=== PATIENT | male | born 1975 | race Caucasian/White ===

== ENCOUNTER 2021-03-16 16:59 | Emergency (ER) | payer SELFPAY ==
[2021-03-16 17:07] VITALS: BP 134/86; PULSE 84; RESP 18; TEMP 37.2; O2SAT 96
--- NOTE | 2021-03-16 17:59 | ED.GENADUL_ITS ---
Discharge Plan Disposition Patient Disposition: HOME Condition: Good Discharge Details Clinical Impression: Dental abscess Primary Care Provider: Unknown,Unknown ED Provider: Emil Berry Home Meds and New Rx's Prescriptions: New clindamycin HCl 150 mg capsule 450 mg PO QID 7 Days Qty: 84 RF: 0 Continued acetaminophen 500 mg Tablet 1,000 mg PO PRN PRNRF: 0 ibuprofen 200 mg Tablet 600 mg PO PRN PRNRF: 0 Discontinued penicillin V potassium 500 mg Tablet 500 mg PO TID RF: 0 Discharge Instructions Instructions: Dental Abscess (ED) Additional Instructions: Please stop taking the penicillin. Please start taking the clindamycin. 450 mg 4 times a day. This is 3 tablets 4 times a day. Please start taking the the probiotic that we discussed to help prevent diarrhea. Please take Tylenol and Motrin to help with the swelling in your cheek, and make sure you are icing the area to help cut down on swelling. Please follow-up closely with your dentist. If you notice any worsening of your symptoms, or any new symptoms such as worsening swelling that travels down your neck, vomiting, diarrhea, fever, chills, shortness of breath, chest pain, numbness, weakness, or fainting , please return immediately to the emergency department for reevaluation. Please follow up with your primary care provider as soon as possible for reassessment and reevaluation. As always, it was a pleasure participating in your medical care today. Medical Decision Making 45-year-old male with no significant past medical history who presents today for evaluation of right-sided dental abscess. Patient initially developed pain in the right lower dental area, he went to the urgent care and was given penicillin. He is taking this for the last 48 hours, however today he noticed significant increase in swelling in the right lower area around his right posterior molars. He came in for further assessment. He denies fever or chills. He denies difficulty swallowing. No other complaints at this time. Physical exam demonstrates evidence of a periapical dental abscess. The area was anesthetized, an 18-gauge syringe was used to extract fluid. About 3 cc of bloody purulent fluid were removed. Patient tolerated this well. Bedside ultrasound postprocedure demonstrates no evidence of significant retained fluid. Patient will be started on clindamycin. Recommend stopping penicillin. Recommend Tylenol Motrin and ice. Recommend close dental follow-up. Discussed red flags for which to return. I have extensively reviewed the treatment plan and discharge instructions with the patient. I have addressed all patient concerns at this time. The patient was made aware of what symptoms to monitor for that would warrant a return to the emergency department. Discussed the plan with the patient, they demonstrate verbal understanding and agreement with our assessment and plan at this time. The documentation in this chart was dictated using [facility] dictation software. Please excuse any dictation errors. Time out was taken to identify the correct patient, procedure, and site. Risks and benefits were discussed with the patient and consent was obtained. Direct pressure was held over the area prior to the procedure to reduce painful injection. 8cc?s of Bupivacaine 0.25% was instilled into the right posterior mandible with a 27 gauge needle.Complete analgesia was obtained. The patient tolerated the procedure. There were no complications. HPI General Date/Time Provider Initiated Documentation: 03/16/21 17:58 . HPI Narrative: 45-year-old male with no significant past medical history who presents today for evaluation of right-sided dental abscess. Patient initially developed pain in the right lower dental area, he went to the urgent care and was given penicillin. He is taking this for the last 48 hours, however today he noticed s ignificant increase in swelling in the right lower area around his right posterior molars. He came in for further assessment. He denies fever or chills. He denies difficulty swallowing. No other complaints at this time. Related Data Home Medications Medication Instructions Recorded Confirmed acetaminophen 1,000 mg PO PRN PRN 03/16/21 03/16/21 clindamycin HCl 450 mg PO QID 7 Days #84 cap 03/16/21 ibuprofen 600 mg PO PRN PRN 03/16/21 03/16/21 Previous Rx's Medication Instructions Recorded clindamycin HCl 450 mg PO QID 7 Days #84 cap 03/16/21 Allergies Allergy/AdvReac Type Severity Reaction Status Date / Time codeine Allergy Unverified 03/16/21 17:14 General Stated Complaint: DentalOral ELIZABETH: 3 Review of Systems All systems reviewed & are unremarkable except as noted in HPI and below PFSH All Active Problems Dental abscess (Acute) Social History (Reviewed 03/16/21 @ 18:10 by CORINNE Cohen Smoking/Tobacco Use Status: Never Smoking risk assessment performed?: Yes Alcohol Intake: current Alcohol Intake frequency: holidays/special occasions only Drug use: Daily Substance use type: marijuana Do you feel safe at home: Yes Do you feel safe in your relationship?: Yes Exam Narrative Exam Narrative: 1.Const: Well-nourished, Well-developed, appearing stated age 2.Eyes: PERRL, no conjunctival injection, and symmetrical lids. 3.ENT: Patient demonstrates mild dental carry in his right posterior lower molar. Swelling at the periapical space is noted. Mild fluctuance. No swelling in the posterior oropharynx. No evidence of airway compromise. No clinical evidence of Ludewig's angina. 4.CVS: +S1/S2, No murmurs or gallops. Peripheral pulses 2+ and equal in all extremities. Brisk capillary refill in all extremities. 5.RESP: Unlabored respiratory effort. Clear to auscultation bilaterally. No wheezes rales or rhonchi 6.GI: Soft, Nontender/Nondistended, No hepatosplenomegaly. No guarding or rebound. 7.MSK: Normocephalic/Atraumatic, Extremities w/o deformity or ttp No cyanosis or clubbing, Normal movement of all extremities 8.Skin: Warm, Dry. No rashes or lesions. 9.Neuro: vacation guide II-XII grossly intact. Sensation grossly intact, no focal neurologic deficits. 10.Psych: (AAO) x3. Appropriate mood and affect Course Vital Signs Vital signs: Vital Signs Temperature 37.2 C 03/16/21 17:07 Pulse 84 03/16/21 17:07 Respiratory Rate 18 03/16/21 17:07 Blood Pressure 134/86 03/16/21 17:07 Pulse Oximetry 96 03/16/21 17:07 Temperature 37.2 C 03/16/21 17:07 Pulse 84 03/16/21 17:07 Respiratory Rate 18 03/16/21 17:07 Respiratory Effort Non-Labored 03/16/21 17:28 Blood Pressure 134/86 03/16/21 17:07 Blood Pressure Position Sitting 03/16/21 17:07 Pulse Oximetry 96 03/16/21 17:07 Oxygen Delivery Method Room Air 03/16/21 17:07 Oxygen Flow Rate 0 03/16/21 17:07 Pain Level 7 03/16/21 17:07 Procedures Abscess I/D Site: Other (dental right lower) Side (if applicable): Right Local Anesthetic: Bupivicaine 0.25% Amount of anesthesia used (mL): 8 Technique: Needle Aspiration Amount of fluid expressed (mL): 3 Irrigation: No Packing used?: None PAWSS Have you Been Recently Intoxicated or Drunk Within the Last 30 days?: No Have you Ever Experienced Previous Episodes of Alcohol Withdrawal?: No Have you ever Experienced Withdrawal Seizures?: No Have you ever Experienced Delirium Tremens(DT)s?: No Have you ever undergone Alcohol Rehabilitation Treatment (i.e, inpt ot outpatient treatment programs)?: No Have you ever Experienced Blackouts?: No Have you ever Combined Alcohol with other Downers within the last 90 days?: No Have you ever Combined Alcohol with any other Substance of Abuse during the last 90 days?: No Positive Blood Alcohol level on Presentation? [PCS.BAL]: No Evidence of Increased Autonomic Activity (i.e. HR>120, tremor, sweating, agitation, nausea)?: No Result: 0
[2021-03-16] MEDS: Clindamycin 150 MG CAP, 12 CAPS/BTL 450 MG PO (18:10)
== END 2021-03-16 19:09 | disposition home or self-care (01) ==
PROVIDERS: Emergency Provider Student in an Organized Health Care Education/Training Program
DX: K04.7 Periapical abscess without sinus (principal); K12.2 Cellulitis and abscess of mouth
CPT/HCPCS: 10160

== ENCOUNTER 2021-08-12 10:03 | Outpatient (CLI) | payer BC, SELFPAY ==
--- NOTE | 2021-08-12 09:53 | DI.RAD_ITS ---
Exam(s) XR WRIST RT COMPLETE EXAM: XR WRIST RT COMPLETE CLINICAL HISTORY: R thjmb [facility] pain. TECHNIQUE: 2D digital imaging was performed. COMPARISON: No exams were available for comparison FINDINGS: 3 views No evidence of fracture carpal dislocation. Corticated ossicle is noted distal to ulnar styloid with out evidence of acute fracture at this level. There are moderate degenerative changes noted in 1st carpometacarpal joint. This is the articulation between the thumb metacarpal and trapezium. No other degenerative changes evident. IMPRESSION: DATA REPOSITORY: RADIATION DOSE DELIVERED:
== END 2021-08-12 10:04 | disposition home or self-care (01) ==
LOC: DIORS 10:03
PROVIDERS: PCP Nurse Practitioner; Visit Provider Student in an Organized Health Care Education/Training Program
DX: M79.644 Pain in right finger(s) (principal)
CPT/HCPCS: 73110

== ENCOUNTER 2021-11-18 03:56 | Outpatient (CLI) | payer BC, SELFPAY ==
[2021-11-18 08:23] LABS: ALT 24 U/L (16-63); AST 12 U/L (15-37); Albumin 3.7 g/dL (3.4-5.0); Alkaline Phosphatase 68 U/L (46-116); Anion Gap 7.6 mmol/L (3-11); BUN 15 mg/dL (7-18); Bilirubin, Total 0.5 mg/dL (0.2-1.0); CO2 29.4 mmol/L (21.0-32.0); Calcium 8.7 mg/dL (8.5-10.1); Calculated LDL 95 mg/dL (<100); Chloride 107 mmol/L (98-107); Cholesterol 153 mg/dL (<200); Glucose 95 mg/dL (74-106); HDL Cholesterol 46 mg/dL (40-60); Potassium 4.1 mmol/L (3.5-5.1); Sodium 144 mmol/L (136-145); Triglyceride 62 mg/dL (<150)
== END 2021-11-18 03:57 | disposition home or self-care (01) ==
LOC: LBO 03:56
PROVIDERS: PCP Nurse Practitioner; Visit Provider Nurse Practitioner
DX: Z00.00 Encounter for general adult medical examination without abnormal findings (principal); Z13.220 Encounter for screening for lipoid disorders
CPT/HCPCS: 36415; 80053; 80061

== ENCOUNTER 2022-04-22 11:52 | Outpatient (REF) | payer BC, SELFPAY ==
[2022-04-22 12:34] LABS: Abs Immature Grans 0.04 10^3/uL (0.0-0.06); Absolute Basophil Count 0.07 10^3/uL (0.0-0.2); Absolute Eosinophil Count 0.09 10^3/uL (0.0-0.7); Absolute Neutrophil Count 7.88 10^3/uL (1.2-6.7); Basophils % 0.6; Eosinophils % 0.8; HCT 46.8 % (40.0-50.0); HGB 15.7 g/dL (13.5-17.5); Immature Grans % 0.3; Lymphocytes % 23.1; MCH 27.9 pg (27.0-33.0); MCHC 33.5 % (32.0-36.0); MCV 83 fL (80-95); MPV 10.1 fL (8.0-11.0); Monocytes % 7.7; Neutrophils % 67.5; Platelet Count 366 10^3/uL (130-400); RBC 5.62 10^6/uL (4.36-5.78); RDW 13.4 % (11.8-14.1); RDW-SD 41.2 fL; WBC 11.67 10^3/uL (4.4-10.8)
[2022-04-22 12:50] LABS: Iron 106 ug/dL (65-175); Total Iron Binding Capacity 293 ug/dL (250-450); Transferrin Sat 36 % (20-55)
[2022-04-22 13:16] LABS: Ferritin 281 ng/mL (26-388); Folate 12.3 ng/mL (8.6-20.0); Vitamin B12 504 pg/mL (193-986)
== END 2022-04-22 11:53 | disposition home or self-care (01) ==
LOC: LBN 11:52
PROVIDERS: PCP Nurse Practitioner; Visit Provider Surgery
DX: K57.92 Diverticulitis of intestine, part unspecified, without perforation or abscess without bleeding (principal); K92.1 Melena; R10.13 Epigastric pain; Z80.0 Family history of malignant neoplasm of digestive organs; C50.919 Malignant neoplasm of unspecified site of unspecified female breast
CPT/HCPCS: 82607; 82728; 82746; 83540; 83550; 85025

== ENCOUNTER 2022-05-02 08:18 | Day surgery (SDC) | payer BC, SELFPAY ==
--- NOTE | 2022-05-01 19:11 | W.PM.DSUDISC ---
Date of service: 05/02/22 Time of Service: 11:34 Discharge Plan Disposition Patient Disposition: Home Condition: Good Discharge Details Reason For Visit: melena Attending Provider: José Miguel Hester Primary Care Provider: Yael Cunningham Home Meds and New Rx's Prescriptions: Continued cholecalciferol (vitamin D3) 25 mcg (1,000 unit) capsule 25 mcg PO DAILY clobetasol 0.05 % cream 1 applic topical DAILY PRN (Reason: psoriasis arms and legs bilat) Qty: 60 6RF omeprazole 40 mg capsule,delayed release(DR/EC) 40 mg PO DAILY Qty: 28 0RF sucralfate [Carafate] 1 gram tablet 1 g PO QACHS Qty: 120 0RF meclizine 25 mg tablet 25 mg PO TID Discontinued bisacodyl [Dulcolax (bisacodyl)] 5 mg tablet,delayed release (DR/EC) 5 mg PO ONCE Qty: 4 0RF Rx Instructions: take per colonoscopy instructions polyethylene glycol 3350 17 gram/dose powder 238 g PO ONCE Qty: 238 0RF Rx Instructions: take per colonoscopy instructions Discharge Instructions Instructions: Diet for Stomach Ulcers and Gastritis (GEN), Colorectal Polyps (GEN), Diverticulosis Diet (GEN), Diverticulosis (GEN) Additional Instructions: Brett, we were able to complete your upper and lower endoscopies today without any difficulty. Generally, the upper endoscopy was normal. There was a small area at the end of your stomach that looks like it may be a healed ulcer. This could explain your recent episode. I took biopsies of multiple parts of the upper GI tract. We will notify you when those results are available. Your colonoscopy also went very smoothly. I removed 4 polyps. Similar to above, we will follow-up with the results of those when they become available. 1. If tolerated, consume a soft, low fiber diet for 1-2 days. 2[address] Do not drive, drink alcohol, operate machinery, make critical decisions, or do activities that require coordination or balance for 24 hours. 3. Because air was put into your colon during the procedure, expelling air from your rectum (passing gas or farting) is normal. 4. You may not have a bowel movement for 1-3 days because of the colonoscopy prep. This is normal. 5. You may experience a sore throat for 24 to 48 hours. You may use throat lozenges or gargle with warm salt water to relieve the discomfort. 6. Because air was put into your stomach during the procedure, you may experience some belching. 7. Go directly to the emergency room if you notice any of the following: Develop chills (warm to touch), or if you have a thermometer and your temperature is above 101 Difficulty breathing or difficultly swallowing Persistent vomiting Severe abdominal pain, other than gas cramps Severe chest pain Black, tarry stools Any bleeding ? exceeding one tablespoon 8. Call your physician if the site where your intravenous was started becomes red, swollen, painful, and warm to touch. 9. Your physician has reviewed your pre-procedure medications. Please continue to take those medications as previously ordered. You will be given specific information/education regarding any changes to your medications before leaving. Activity:: Activity as Tolerated Diet:: As Tolerated Discharge Orders Discharge Orders: Discharge Order (Routine); Ordered 05/01/22 Ordered By: José Miguel Hester DS: Diagnosis Discharge Diagnosis (1) Black stools: Status: Acute Asessment and Plan: Follow-up on biopsy pathology results
--- NOTE | 2022-05-01 19:14 | W.PM.ENDDOP ---
Date of service: 05/02/22 Time of Service: 11:10 Endoscopy Report DATE OF PROCEDURE: 05/02/22 PRE-OP DIAGNOSIS: Melena POST-OP DIAGNOSIS: other (Pyloric ulcer, diverticulosis, colon polyps) PROCEDURE: EGD and colonoscopy SURGEON: José Miguel Hester ANESTHESIA TYPE: General:No Airway ESTIMATED BLOOD LOSS: 20 PATHOLOGY: other (Colon polyps at 100, 65, 35, and 30 cm) COMPLICATIONS: None DISPOSITION: same day INDICATIONS: Brett is a 46 year old man with a family history of colon cancer who has recently been experiencing melena. PREP: Miralax/Dulcolax PROCEDURE START TIME: 10:31 PROCEDURE END TIME: 11:08 COLONOSCOPY RETRACTION TIME: 12 FINDINGS: Healed pyloric ulcer, diverticulosis, colon polyps at 100, 65, 35 and 30 cm. Diverticulosis PROCEDURE DESCRIPTION: After the initiation of monitored anesthetic care, and with the assistance of a bite block, I advanced a standard gastroscope through the mouth past the hypopharynx and into the esophagus.? Under the direct vision of the scope, I advanced down the esophagus into the stomach.? Once I entered the stomach, I performed a brief inspection, followed by retroflexion towards the gastric cardia.? This appeared normal.? After that, I gently advanced the scope around the incisura angularis and examined the pylorus.? There was a very faint, white discoloration immediately before the pylorus. It had features of a healed prepyloric ulcer. Certainly, there were no stigmata of recent bleeding. It was quite flat. Next, I advanced the scope through the pylorus into the duodenum.? The mucosa was pink and healthy appearing.? There were no abnormalities.? I was able to visualize bile draining into the duodenum through the ampulla Vater. ?Next, I began retracting the endoscope.? Perform random biopsies of the duodenum, antrum, and greater curvature. These were all performed with cold forceps and there was minimal bleeding. I then gently desufflated some of the stomach, and withdrew the endoscope into the distal esophagus. The Z-line and GE junction were normal-appearing. I did perform some biopsies of the GE junction and distal esophagus. ?Finally, I withdrew the scope along the length of the esophagus taking great care to examine the entirety of the mucosa.? I did not appreciate any abnormalities. We then moved to [place] into the left lateral decubitus position. I began by performing an external anorectal exam.? Perineum and skin were normal, as was the anal verge.? There was no evidence of external hemorrhoids.? Next, I performed a digital rectal exam.? I did not appreciate any abnormal findings.? Next, I advanced a colonoscope into the rectal vault.? I performed retroflexion.? This was normal.? Using insufflation, I then advanced the colonoscope beyond the rectal folds and into the sigmoid colon before advancing towards the cecum.? There was sigmoid diverticulosis. The quality of the prep was adequate.? The scope was noted to be in the cecum by identification of the ileocecal valve and appendiceal orifice.? I then began withdrawing the colonoscope using repeated irrigation as necessary for full evaluation of the colonic mucosa. In the ascending colon, around 100 cm from the anal verge I identified a 0.75 cm polyp. ?It appeared sessile in character. ?I was able to remove this with a cold snare polypectomy. ?I examined the site, and there was minimal bleeding. Similarly, I found polyps at 65 cm, 35 cm and 30 cm. All of these were less than 0.25 cm, and all were sessile. For removed with cold forceps. Once this was completed, I continued to withdraw the scope and examine the remainder of the colonic mucosa.?Once the scope was withdrawn to the level of the rectum, great care was taken to examine portions of the rectal folds.? Finally, the scope was withdrawn and the patient was brought to the same-day surgery recovery unit as the anesthetic wore off. ?The findings and instructions were shared with the patient prior to discharge.
[2022-05-02 08:20] VITALS: BP 125/89; PULSE 74; RESP 16; TEMP 36.1; O2SAT 96
[2022-05-02] MEDS: Lactated Ringers 1,000 ML 80 ML IV (09:26)
--- NOTE | 2022-05-02 10:17 | W.ANESPRE ---
General Info Date of Service Date Performed: 05/02/22 Height: 5 ft 11 in Weight: 111.7 kg Body Mass Index (BMI): 34.3 Surgical Procedure: Operation Date: 05/02/22 09:35 Proposed Procedure Side Surgeon p Colonoscopy/Gastroscopy w/Biopsies José Miguel Hester MD Actual Procedure Side Surgeon p Colonoscopy/Gastroscopy w/Biopsies José Miguel Hester MD Meds Allergies and Home Medications Allergies Allergy/AdvReac Type Severity Reaction Status Date / Time ciprofloxacin [From Cipro] AdvReac Head and Verified 05/02/22 09:28 vomiting codeine AdvReac Visual Verified 05/02/22 09:28 Disturbances levofloxacin AdvReac Nausea Verified 05/02/22 09:28 Home Medication Medication Instructions Recorded meclizine 25 mg tablet 25 mg PO TID 05/03/21 cholecalciferol (vitamin D3) 25 25 mcg PO DAILY 11/09/21 mcg (1,000 unit) capsule clobetasol 0.05 % topical cream 1 applic topical DAILY PRN 11/09/21 psoriasis arms and legs bilat #60 grams omeprazole 40 mg capsule,delayed 40 mg PO DAILY #28 caps 03/31/22 release sucralfate 1 gram tablet (Carafate) 1 g PO QACHS #120 tabs 03/31/22 Current Visit Medications: Current Medications Generic Name Dose Route Start Last Admin Trade Name Freq PRN Reason Stop Dose Admin Hyoscyamine Sulfate 0.125 mg 05/01/22 19:16 Hyoscyamine 0.125 Mg Sl/Oral/Chew SL DIRECTED PRN Ringer's Solution 1,000 mls @ 80 mls/hr 05/02/22 06:00 05/02/22 09:26 IV 05/29/22 23:59 80 mls/hr INFUSION KAROLYN Administration IV Miscellaneous Supplies 1 each 05/02/22 06:00 Iv Access IV 05/29/22 23:59 DIRECTED KAROLYN Ondansetron HCl 4 mg 05/01/22 19:16 Ondansetron 4 Mg/2 Ml Vial IVP Q4H PRN PRN Nausea / Vomiting Sodium Chloride 0 ml 05/02/22 06:00 Normal Saline Flush 10 Ml Syr IV 05/29/22 23:59 PRN PRN Sodium Chloride 0 ml 05/02/22 06:00 Normal Saline 10 Ml Vial IJ 05/29/22 23:59 DIRECTED PRN Sterile Water 0 ml 05/02/22 06:00 Water,Injection,Sterile 10 Ml Vial IJ 05/29/22 23:59 DIRECTED PRN PFSH Active Problems Active Problems: Problem Status Onset Code GERD (gastroesophageal reflux disease) K21.9 Diverticulosis K57.90 Family history of colon cancer Z80.0 Black stools K92.1 Benign positional vertigo H81.10 Arthritis of carpometacarpal (CMC) joint of right thumb M18.11 Perforation of tympanic membrane 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 Neck pain M54.2 Surgical History Surgical History H/O hand surgery (~2011) left s/p trauma WC injury History of colonoscopy (~2015) History of ear surgery (~1985) Hx of appendectomy Tobacco Smoking/Tobacco Use Status: Former Tobacco Use Passive smoking exposure: No Second hand exposure: No Alcohol Alcohol Intake: current Alcohol intake frequency: a few times a month Substance Use Substance use: Never Substance use type: does not use Vital Signs and Lab Results Vital Signs Most Recent Vital Signs in EMR: Most Recent Vital Signs Temp Pulse Resp BP Pulse Ox 36.1 C L 74 16 125/89 96 05/02/22 08:20 05/02/22 08:20 05/02/22 08:20 05/02/22 08:20 05/02/22 08:20 Lab Results Blood Type / Crossmatch: No Data to Display Complete Blood Count: White Blood Count 11.67 10^3/uL (4.4-10.8) H 04/22/22 11:45 Red Blood Count 5.62 10^6/uL (4.36-5.78) 04/22/22 11:45 Hemoglobin 15.7 g/dL (13.5-17.5) 04/22/22 11:45 Hematocrit 46.8 % (40.0-50.0) 04/22/22 11:45 Platelet Count 366 10^3/uL (130-400) 04/22/22 11:45 Complete Metabolic Panel: No Data to Display Liver Function Panel: No Data to Display Coagulation Panel: No Data to Display Cardiac Panel: No Data to Display Arterial Blood Gas: No Data to Display Venous Blood Gas: No Data to Display Pancreas Panel: No Data to Display Thyroid Panel: No Data to Display Infectious Disease: No Data to Display Blood Cultures: No Data to Display Toxicology Panel: No Data to Display Anesthesia Assessment and Plan Anesthesia History Personal History: PONV and Delayed Emergence Family History: Family History Unknown Exercise Tolerance Exercise Tolerance: Metabolic Equivalents>4 Pertinent Negatives Pertinent Negatives: No Major Cardiovascular Symptoms or Complaints and No Major Pulmonary Symptoms or Complaints Cardiac & Pulmonary Exam Cardiac Exam: Normal S1/S2 Heart Sounds Pulmonary Exam: Clear Bilateral Breath Sounds Implantable Cardiac Device Does patient have a Pacemaker or an ICD?: No Airway Exam Known Difficult Airway: No Mallampati Class: 3 Mouth Opening: Narrow (< 3cm) Thyromental Distance: Greater than 3 cm Neck Range of Motion: Full ROM Neck Circumference: Normal Teeth Condition: Normal Dentition ASA Classification ASA Score: ASA 2 Emergency Case?: No NPO Status NPO Status: NPO Clears >2 hours, Solids >8 hours Anesthesia Plan Resuscitation Status: Full Code Anesthesia Technique: General Anesthesia Airway Planned: Natural Airway Monitors Used: Standard Monitors
[2022-05-02 10:18] VITALS: BMI 34.3
--- NOTE | 2022-05-02 10:35 | BOWEL_PTH ---
PATIENT: Brett Edmondson LOC: [facility] U#:[id number] AGE/SX: 46/M ROOM: RE05/02/[address]: José Miguel Hester MD : 1975 BED: DIS: 05/02/2022 SPEC #: [id number] RECD: 05/02/22 13:26 STATUS: MARISELA RE #: [id number] MAICO: 05/02/22 10:[address]: José Miguel Hester DEPT: Surgical Specimen RECD BY: Jolene Sanchez ENTERED: 05/02/22 13:28 SP TYPE: Bowel OTHR DR: Yael Cunningham APRN Tissues: 1 - BIOPSY BOWEL 2 - STOMACH BIOPSY 3 - STOMACH BIOPSY 4 - ESOPHAGUS BIOPSY 5 - ESOPHAGUS BIOPSY 6 - BIOPSY BOWEL 7 - BIOPSY BOWEL 8 - BIOPSY BOWEL 9 - BIOPSY BOWEL Procedures: GROSS AND MICRO LEVEL 4 Comments: [id number]
[2022-05-02 11:16] VITALS: BP 115/91; PULSE 80; RESP 16; TEMP 36.7; O2SAT 97
--- NOTE | 2022-05-02 11:34 | W.ANESPOSTOP ---
Postoperative Evaluation Date, Time and Location Date Performed: 05/02/22 Time Performed: 11:34 Patient Location: Day Surgery Unit Vital Signs Most Recent Imported Vital Signs: Most Recent Vital Signs Temp Pulse Resp BP Pulse Ox 36.7 C 80 16 115/91 H 97 05/02/22 11:16 05/02/22 11:16 05/02/22 11:16 05/02/22 11:16 05/02/22 11:16 Pain Score Most Recent Pain Score: Most Recent Pain Score Pain Level 7 05/02/22 11:16 Assessment Mental Status: Awake (Alert & Oriented to Patient Baseline) Airway and Respiratory Function: Patent airway with normal (patient baseline) respiratory exam Cardiovascular Function: Hemodynamically Stable Hydration Status: Adequately Hydrated Nausea & Vomiting: No Nausea or Vomiting Pain: Pain is tolerable per patient Peripheral Nerve Block: Patient did not receive a nerve block
[2022-05-02] MEDS: Acetaminophen 325 MG TAB 650 MG PO (11:38)
[2022-05-02 11:45] VITALS: BP 111/81; PULSE 58; RESP 16; TEMP 36.5; O2SAT 100
== END 2022-05-02 12:45 | disposition home or self-care (01) ==
PROVIDERS: PCP Nurse Practitioner; Visit Provider Surgery
PROC: (CPT 45380; principal; 2022-05-02 09:30)
DX: K92.1 Melena (principal); K57.30 Diverticulosis of large intestine without perforation or abscess without bleeding; K63.5 Polyp of colon; Z87.11 Personal history of peptic ulcer disease; Z80.0 Family history of malignant neoplasm of digestive organs; K22.89 Other specified disease of esophagus
CPT/HCPCS: 45380; 43239; 88305; J2704

== ENCOUNTER 2022-05-25 11:22 | Outpatient (REF) | payer BC, SELFPAY ==
[2022-05-25 16:44] LABS: COVID-19 PCR Negative (Negative); Influenza A PCR Negative (Negative); Influenza B PCR Negative (Negative); RSV PCR Negative (Negative)
[2022-05-25 16:58] LABS: Source Nasopharynx
== END 2022-05-25 11:23 | disposition home or self-care (01) ==
LOC: LBN 11:22
PROVIDERS: PCP Nurse Practitioner; Referring Provider Nurse Practitioner; Visit Provider Nurse Practitioner
DX: R05.9 Cough, unspecified (principal); R06.02 Shortness of breath; R09.89 Other specified symptoms and signs involving the circulatory and respiratory systems; Z20.822 Contact with and (suspected) exposure to COVID-19
CPT/HCPCS: 87637

== ENCOUNTER 2022-05-25 14:56 | Outpatient (CLI) | payer BC, SELFPAY ==
--- NOTE | 2022-05-25 11:15 | DI.RAD_ITS ---
Exam(s) XR CHEST 2V PA LATERAL EXAM: XR CHEST 2V PA LATERAL CLINICAL HISTORY: 1.5 weeks illness, cough, dyspnea on exertion, R05.9, R06.09 TECHNIQUE: 2D digital imaging was performed of the chest. Two images were obtained. PA and lateral views were obtained. COMPARISON: No exams were available for comparison FINDINGS: MEDIASTINUM: Normal. HEART: Normal. PULMONARY VASCULATURE: Normal. LUNGS: Clear. PLEURAL SPACE: No pleural effusion or pneumothorax. BONE:Within normal limits for the patient's age. OTHER FINDINGS:Normal. IMPRESSION: No acute pulmonary findings. DATA REPOSITORY: RADIATION DOSE DELIVERED:
== END 2022-05-25 15:16 ==
LOC: DI 14:58
PROVIDERS: PCP Nurse Practitioner; Visit Provider Nurse Practitioner
DX: R05.8 Other specified cough (principal); R06.09 Other forms of dyspnea
CPT/HCPCS: 71046

== ENCOUNTER 2024-03-26 14:00 | Outpatient (CLI) | payer OTHER, SELFPAY ==
--- NOTE | 2024-03-26 14:00 | RT.EKG_ITS ---
APPROVED REPORT Exam: Resting ECG Reason for Exam: episode CP Patient Location: O HR:69 bpm ECG Measurements Heart Rate 69 AXIS TX 147 P 50 QRSd 92 QRS 1 QT 399 T 53 QTc 428 Conclusion Sinus rhythm...normal P axis, V-rate 50- 99 Abnormal R-wave progression, early transition...QRS area>0 in V2
== END 2024-03-26 14:01 | disposition home or self-care (01) ==
LOC: DI.KIM 14:01
PROVIDERS: PCP Nurse Practitioner; Visit Provider Nurse Practitioner
DX: R07.9 Chest pain, unspecified (principal)
CPT/HCPCS: 93010

== ENCOUNTER 2024-03-26 16:01 | Outpatient (CLI) | payer OTHER, SELFPAY ==
--- NOTE | 2024-03-26 14:29 | DI.RAD_ITS ---
Exam(s) XR CHEST 2V PA LATERAL EXAM: XR CHEST 2V PA LATERAL CLINICAL HISTORY: cough, SOB,r06.02,r05.9 TECHNIQUE: 2D digital imaging was performed. Two views. COMPARISON: No exams were available for comparison FINDINGS: HEART: Upper normal size. Aorta: Mildly tortuous. PULMONARY VASCULATURE: Normal. MEDIASTINUM: Unremarkable. LUNGS: Clear. PLEURAL SPACE: No pleural effusion or pneumothorax. BONE:Unremarkable for age. SOFT TISSUES: Unremarkable. IMPRESSION: No acute abnormality. DATA REPOSITORY: RADIATION DOSE DELIVERED:
== END 2024-03-26 16:21 ==
LOC: DI 16:04
PROVIDERS: PCP Nurse Practitioner; Visit Provider Nurse Practitioner
DX: R06.02 Shortness of breath (principal); R05.9 Cough, unspecified
CPT/HCPCS: 71046